=== PATIENT | male | born 1935 | race Caucasian/White ===

== ENCOUNTER 2018-01-07 01:56 | Observation (INO) | payer OTHER ==
[~2018-01-07] VITALS: Ht 170.2 cm; Wt 78.9 kg
[2018-01-07] MEDS ORDERED: NITROGLYCERIN SUBLINGUAL 0.4 MG BOTTLE OF 25. SL PRN ×2 (02:15→03:00)
--- NOTE | 2018-01-07 02:23 | PHYS DOC ---
Adult General Chief Complaint Chief Complaint chest pain HPI HPI 82 years old male presented to the emergency department with chest pain described as a pressure this just will come from sleep associated with shortness of breath lasted for 20 minutes then eased up on its own stated he never experienced this pain before Review of Systems Review of Systems Constitutional: Denies fever or chills [] Eyes: Denies change in visual acuity, redness, or eye pain [] HENT: Denies nasal congestion or sore throat [] Respiratory: Denies cough or shortness of breath [] Cardiovascular: No additional information not addressed in HPI [] GI: Denies abdominal pain, nausea, vomiting, bloody stools or diarrhea [] : Denies dysuria or hematuria [] Musculoskeletal: Denies back pain or joint pain [] Integument: Denies rash or skin lesions [] Neurologic: Denies headache, focal weakness or sensory changes [] Endocrine: Denies polyuria or polydipsia [] All other systems were reviewed and found to be within normal limits, except as documented in this note. Current Medications Current Medications Current Medications Medications (Trade) Dose Ordered Sig/Patrick Start Time Stop Time Status Last Admin Dose Admin Aspirin (Children'S Aspirin) 324 mg 1X ONCE 01/07/18 03:00 01/07/18 03:01 01/07/18 02:31 324 MG Nitroglycerin (Nitro-Bid Oint) 1 inch 1X ONCE 01/07/18 03:00 01/07/18 03:01 Nitroglycerin (Nitrostat) 0.4 mg PRN Q5MIN PRN 01/07/18 02:15 01/08/18 02:14 01/07/18 02:32 0.4 MG Allergies Allergies Allergies Coded Allergies Type Severity Reaction Last Updated Verified No Known Drug Allergies 01/07/18 No Physical Exam Physical Exam Constitutional: Well developed, well nourished, no acute distress, non-toxic appearance. [] HENT: Normocephalic, atraumatic, bilateral external ears normal, oropharynx moist, no oral exudates, nose normal. [] Eyes: PERRLA, EOMI, conjunctiva normal, no discharge. [] Neck: Normal range of motion, no tenderness, supple, no stridor. [] Cardiovascular:Heart rate regular rhythm, no murmur [] Lungs & Thorax: Bilateral breath sounds clear to auscultation [] Abdomen: Bowel sounds normal, soft, no tenderness, no masses, no pulsatile masses. [] Skin: Warm, dry, no erythema, no rash. [] Back: No tenderness, no CVA tenderness. [] Extremities: No tenderness, no cyanosis, no clubbing, ROM intact, no edema. [] Neurologic: Alert and oriented X 3, normal motor function, normal sensory function, no focal deficits noted. [] Psychologic: Affect normal, judgement normal, mood normal. [] Current Patient Data Vital Signs Vital Signs Date Time Temp Pulse Resp B/P (MAP) Pulse Ox O2 Delivery O2 Flow Rate FiO2 01/07/18 02:32 63 147/68 01/07/18 01:56 97.7 18 97 Room Air Lab Results Laboratory Tests Test 01/07/18 02:15 White Blood Count 5.7 x10^3/uL (4.0-11.0) Red Blood Count 4.67 x10^6/uL (4.30-5.70) Hemoglobin 14.0 g/dL (13.0-17.5) Hematocrit 43.1 % (39.0-53.0) Mean Corpuscular Volume 92 fL (79-100) Mean Corpuscular Hemoglobin 30 pg (25-35) Mean Corpuscular Hemoglobin Concent 33 g/dL (31-37) Red Cell Distribution Width 14.3 % (11.5-14.5) Platelet Count 177 x10^3/uL (140-400) Neutrophils (%) (Auto) 55 % (31-73) Lymphocytes (%) (Auto) 30 % (24-48) Monocytes (%) (Auto) 11 % (0-9) H Eosinophils (%) (Auto) 3 % (0-3) Basophils (%) (Auto) 1 % (0-3) Neutrophils # (Auto) 3.1 x10^3uL (1.8-7.7) Lymphocytes # (Auto) 1.7 x10^3/uL (1.0-4.8) Monocytes # (Auto) 0.6 x10^3/uL (0.0-1.1) Eosinophils # (Auto) 0.2 x10^3/uL (0.0-0.7) Basophils # (Auto) 0.0 x10^3/uL (0.0-0.2) Sodium Level 141 mmol/L (136-145) Potassium Level 4.0 mmol/L (3.5-5.1) Chloride Level 105 mmol/L (98-107) Carbon Dioxide Level 31 mmol/L (21-32) Anion Gap 5 (6-14) L Blood Urea Nitrogen 18 mg/dL (8-26) Creatinine 1.2 mg/dL (0.7-1.3) Estimated GFR (Cockcroft-Gault) 58.1 Glucose Level 99 mg/dL (70-99) Calcium Level 8.6 mg/dL (8.5-10.1) Troponin I Quantitative < 0.017 ng/mL (0-0.055) EKG EKG ST depression lateral leads[] Radiology/Procedures Radiology/Procedures [] Course & Med Decision Making Course & Med Decision Making Pertinent Labs and Imaging studies reviewed. (See chart for details) [] Final Impression Final Impression Patient to be admitted to medicine service until a bed to rule out acute syndrome bloating serial troponin serial EKGs[] Problems: (1) Chest pain Qualifiers: Qualified Codes: R07.9 - Chest pain, unspecified Dragon Disclaimer Dragon Disclaimer This electronic medical record was generated, in whole or in part, using a voice recognition dictation system. HOLLIS FRITZ MD Jan 07, 2018 02:23
[2018-01-07 02:41] LABS: BASO % 1 % (0-3); EOS # 0.2 x10^3/uL (0.0-0.7); EOS % 3 % (0-3); HEMATOCRIT 43.1 % (39.0-53.0); LYMPH # 1.7 x10^3/uL (1.0-4.8); LYMPH % 30 % (24-48); MEAN CORPUSCULAR HEMOGLOBIN 30 pg (25-35); MEAN CORPUSCULAR HGB CONC 33 g/dL (31-37); MEAN CORPUSCULAR VOLUME 92 fL (79-100); MONO # 0.6 x10^3/uL (0.0-1.1); MONO % 11 % (0-9); NEUT # 3.1 x10^3uL (1.8-7.7); NEUT % 55 % (31-73); PLATELET COUNT 177 x10^3/uL (140-400); RED BLOOD COUNT 4.67 x10^6/uL (4.30-5.70); RED CELL DISTRIBUTION WIDTH 14.3 % (11.5-14.5); WHITE BLOOD COUNT 5.7 x10^3/uL (4.0-11.0)
--- NOTE | 2018-01-07 02:42 | RAD ---
Chest radiograph 01/07/2018 1:38 AM INDICATION: Chest pain COMPARISON: None available TECHNIQUE: Frontal view of the chest is provided. FINDINGS: The cardiomediastinal silhouette is within normal limits. There are no pleural effusions. There is no pulmonary vascular congestion. There is no pneumothorax. The lungs are clear. No significant osseous abnormality is identified. IMPRESSION: No acute cardiopulmonary process. Electronically signed by: Citlali Thomas MD (01/07/2018 2:38 AM) [facility]
[2018-01-07 02:44] LABS: CALCIUM 8.6 mg/dL (8.5-10.1); CREATININE 1.2 mg/dL (0.7-1.3); GFR 58.1
[2018-01-07] MEDS ORDERED: ACETAMINOPHEN 325 MG TABLET PO PRN (03:00)
[2018-01-07] MEDS ORDERED: ASPIRIN 81 MG TAB.CHEW PO ONE (03:00)
[2018-01-07] MEDS ORDERED: NITROGLYCERIN OINT 1 GM PACKET. TP ONE (03:00)
--- NOTE | 2018-01-07 03:08 | EKG ---
[address] [address] Test Date: 2018-01-07 Test Time: 02:02:59 Pat Name: ROSA MARIA ALEXANDER Department: Room: Gender: M Supplier Manager: : [id number] Requested By: HOLLIS FRITZ Order Number: [id number] Reading MD: Zheng Reece MD Measurements Intervals [place] Rate: 78 P: 12 IA: 206 QRS: -1 QRSD: 86 T: 38 QT: 394 QTc: 453 Interpretive Statements SINUS RHYTHM ATRIAL PREMATURE COMPLEX(ES), TRIGEMINY Electronically Signed On 01-07-2018 9:45:30 [employer]NA[employer] by Zheng Reece MD
[2018-01-07] MEDS ORDERED: CLOPIDOGREL BISULFATE 75 MG TABLET PO ONE (03:30)
[2018-01-07] MEDS ORDERED: ENOXAPARIN ** NOTE DOSE ** SYRINGE SQ ONE (03:30)
[2018-01-07 05:09] VITALS: BP_SYST 152; BP_SYST 154; BP_DIAS 77
[2018-01-07] MEDS ORDERED: ACET650T89 PO (06:21)
--- NOTE | 2018-01-07 10:20 | PDOC ---
PROVIDER NOTE PROVIDER NOTE PROVIDER NOTE CC: Chest pressure HPI: Pleasant 82 y.o male coming into the ER with pressure like pain in the chest that woke him up from sleep. He denies any prior cardiac history. He has been active as a greenberg. Occ shortness of air, otherwise no symptoms of HF. No prior cardiac history. Pmhx: None Sochx: No alcohol, tob or illicits. He is . ALL: NKDA Current meds: None Physical Exam: Constitutional: Well developed, well nourished, no acute distress, non-toxic appearance, positive interaction, playful. Neck: Normal range of motion, no tenderness, supple, no stridor. Cardiovascular: Normal heart rate, normal rhythm, no murmurs, no rubs, no gallops. Thorax and Lungs: Normal breath sounds, no respiratory distress, no wheezing, no chest tenderness, no retractions, no accessory muscle use. Abdomen: Bowel sounds normal, soft, no tenderness, no masses, no pulsatile masses. Skin: Warm, dry, no erythema, no rash. Back: No tenderness, no CVA tenderness. Extremeties: Intact distal pulses, no tenderness, no cyanosis, no clubbing, ROM intact, no edema. Musculoskeletal: Good ROM in all major joints, no tenderness to palpation or major deformities noted. Neurologic: Alert and oriented X 3, normal motor function, normal sensory function, no focal deficits noted. Psychologic: Affect normal, judgement normal, mood normal. Impression: 1. Chest pain - DDx is broad - GERD, esophageal spams versus angina Plan: 1. His initial presentation is lower risk. His bedside echo reveals normal LV function, no clear valvular disease and no effusion. EKG is unremarkable and enzymes are negative. 2. We will rule out occult p.e with a d-dimer and if pt able to ambulate w/o pain, then DC with close outpt f/u for stress testing. 3. DC home on ASA 81mg daily, Atorvastatin 20mg daily and NTG 0.4mg prn. Patient agreeable with plan. Thanks. ABDIRAHMAN VIEYRA MD Jan 07, 2018 10:20
[2018-01-07] MEDS ORDERED: ASPIRIN 81 MG TAB.CHEW PO SCH (11:00)
[2018-01-07 11:27] VITALS: BP 129/72
[2018-01-07] MEDS ORDERED: ATOR20TA58 PO (11:45)
[2018-01-07] MEDS ORDERED: NITR0.4T22 SL (11:45)
[2018-01-07] MEDS ORDERED: ASPI-630 PO (11:45)
--- NOTE | 2018-01-07 14:35 | SSS ---
ADMIT DATE: 01/07/2018 HISTORY OF PRESENT ILLNESS: The patient is an 82-year-old male patient who came to the Emergency Room complaining of chest pain that awakened him at around 1:00 in the morning from sleep. The pain was rated about 10/10, lasted for almost more than half an hour; however, it was not associated with any nausea or vomiting, no diaphoresis, no shortness of breath and no radiation and apparently the pain has subsided completely by the time he arrived to the Emergency Room. He was extensively investigated and has had 3 sets of cardiac enzymes that were negative and ruled out myocardial infarction. His EKG showed that he was in sinus rhythm with ST depression in the lateral leads. He apparently was seen by the Cardiology team who recommended that the patient can be discharged as he has a bedside echo revealed normal left ventricular function, no clear valvular disease and no effusion. EKG is unremarkable and enzymes are negative and he has a D-dimer, which was also negative and ruled out pulmonary embolism and the patient will be discharged with an arrangement for an outpatient stress testing and the patient was recommended to be on aspirin 81 mg once a day, atorvastatin 20 mg once a day as well as nitroglycerin 0.4 mg as needed. PAST MEDICAL HISTORY: Unremarkable. PAST SURGICAL HISTORY: Significant for bilateral carpal tunnel release. ALLERGIES: He has no known drug allergies. MEDICATIONS: He occasionally takes an aspirin. FAMILY HISTORY: He has 2 brothers. The younger brother has myocardial infarction and coronary artery bypass graft. The older brother is healthy. His sister is healthy. His father at the age of 73 because of liver cancer. His mother when he was a baby at age of 25 because of pneumonia. SOCIAL HISTORY: He is , has 2 sons and 1 daughter. He never smoked, drinks alcohol occasionally. 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 REVIEW OF SYSTEMS: The patient denied any blurring of vision, cataract, glaucoma or macular degeneration. Denied any earache, tinnitus or sensorineural deafness. Denied any nosebleeds, stuffy nose or postnasal drip. Denied any sore throat, sore tongue, toothache, hoarseness of voice or difficulty swallowing. Denied any nausea, vomiting, diarrhea or constipation. Denied any hematemesis, melena or hematochezia. Denied any dysuria, frequency or hematuria. Did complain of chest pain, but denied any dyspnea, orthopnea or paroxysmal nocturnal dyspnea. Denied any cough, phlegm or hemoptysis. PHYSICAL EXAMINATION: GENERAL: On examining him, he looked well and was clearly in no apparent respiratory distress. No pallor, jaundice, cyanosis, or thyromegaly. EXTREMITIES: No lower limb edema. VITAL SIGNS: His heart rate was 74, blood pressure was 152/77, temperature was 97.5, respiratory rate 20 and oxygen saturation was 98% on room air. HEENT: Examination of the head, eyes, ears, nose and throat showed normocephalic, atraumatic. NECK: Supple. No jugular venous distension. HEART: Showed normal first and second heart sounds with no gallop, rub or murmur. CHEST: Clear to auscultation. No crepitation or rhonchi. ABDOMEN: Distended, soft, nontender. NEUROLOGIC: He is awake, alert, responding appropriately. All cranial nerves are intact. He moves extremities without difficulty. He ambulates without assistance or assistive devices. LABORATORY DATA AND IMAGING STUDIES: His lab work showed a white cell count 5700, hemoglobin 14, hematocrit 43, MCV 92 and platelet count of 177,000 with normal manual differential. His chemistry showed a serum sodium 141, potassium 4, chloride 105, bicarbonate 31, anion gap of 5, BUN 18, creatinine 1.2, estimated GFR was 58 mL per minute. His glucose was 99, calcium was 8.6. He had 3 sets of troponin, all of them were less than 0.017. His D-dimer was only 0.29. His chest x-ray showed that cardiomediastinal silhouette is within normal limits. There are no pleural effusions. There is no pulmonary vascular congestion or pneumothorax. The lungs are clear. No significant osseous abnormality detected or identified. DISCHARGE INSTRUCTIONS: The patient will be discharged home with an arrangement for outpatient stress testing. He will be discharged on aspirin, atorvastatin and nitroglycerin. FINAL DISCHARGE DIAGNOSIS: Chest pain, myocardial infarction ruled out. EMMANUEL CHU MD DR: NIKI/edmar JOB#: [id number] / [id number]
[2018-01-07] MEDS ORDERED: ATORVASTATIN CALCIUM 20 MG TABLET PO SCH (21:00)
[2018-01-07] MEDS ORDERED: METOPROLOL TART IMMED RELEASE 25 MG TABLET PO SCH (21:00)
[2018-01-08] MEDS ORDERED: ASPIRIN 81 MG TAB.CHEW PO SCH (08:00)
== END 2018-01-07 12:50 | disposition home or self-care (01) ==
LOC: ER 01:56 → 1 SOUTH 03:23
PROVIDERS: ADMIT Internal Medicine; ATTEND Internal Medicine
DX: R07.89 Other chest pain (principal); Z79.899 Other long term (current) drug therapy; Z79.82 Long term (current) use of aspirin; Z80.0 Family history of malignant neoplasm of digestive organs; Z82.49 Family history of ischemic heart disease and other diseases of the circulatory system; Z98.890 Other specified postprocedural states
CPT/HCPCS: 36415; 71045; 80048; 84484; 85025; 85379; 93005; 96372; 99284; G0378; G0379; J1650; 99285